=== PATIENT | female | born 1935 | race Two or more races ===

== ENCOUNTER 2018-03-27 13:25 | Inpatient (IN) | payer MEDICARE, MEDICAID ==
[~2018-03-27] VITALS: Ht 157.5 cm; Wt 56.4 kg
[~2018-03-27 13:25] MED LIST: CARB25TA3 PO; LEVO25TA6 PO
[2018-03-27] MEDS ORDERED: MULT1TAB95 PO (14:54)
[2018-03-27] MEDS ORDERED: ASCO500T11 PO (14:54)
[2018-03-27] MEDS ORDERED: LACT10SO3 PO (14:54)
[2018-03-27] MEDS ORDERED: HYDR-4683 PO (14:54)
[2018-03-27] MEDS ORDERED: SENN1TAB14 PO (14:54)
[2018-03-27] MEDS ORDERED: SULF400T11 PO (14:54)
[2018-03-27] MEDS ORDERED: ASPI81TA27 PO (14:54)
[2018-03-27] MEDS ORDERED: BIS10RS PR (14:54)
[2018-03-27] MEDS ORDERED: ERTAPENEM SOD INJ 1 GM in SODIUM CHL 0.9% 50 ML IV ONE (15:00)
[2018-03-27] MEDS: SODIUM CHLORIDE 0.9% 1,000 ML IV SCH (15:48)
[2018-03-27 15:50] LABS: Basophils # (auto) 0.1 uL; Basophils % (auto) 0.5 % (0.0-2.0); Eosinophils # (auto) 0 uL; Hemoglobin 15.1 g/dL (12.2-16.2); Lymphocytes # (auto) 2.5 uL; Lymphocytes % (auto) 22.7 % (10.0-50.0); Mean Corpuscular Hgb Conc. 34.3 g/dL (32.0-36.0); Mean Corpuscular Volume 84.5 fL (80.0-100.0); Monocytes # (auto) 0.9 uL; Monocytes % (auto) 8.4 % (0.0-12.0); Neutrophils # (auto) 7.5 uL; Neutrophils % (auto) 68.4 % (37.0-80.0); Nucleated Red Blood Cells % 0.1 %; Platelet Count (auto) 311 10^3/uL (140-450); Red Blood Cells 5.21 10^6/uL (4.0-5.20); Red Cell Distribution Width 14.1 % (11.8-14.3)
[2018-03-27] MEDS: ACETAMINOPHEN 500 MG TAB PO PRN ×2 (15:50→22:28)
[2018-03-27 16:00] LABS: Urine Bacteria NONE SEEN /hpf (None Seen); Urine Blood 2+ /uL (Negative); Urine Mucus FEW (None Seen); Urine Specific Gravity 1.032 (1.001-1.035); Urine WBC 10 /hpf (0 - 5)
[2018-03-27 16:12] LABS: Albumin 3.5 g/dL (3.4-5.0); BUN/Creatinine Ratio 32.9; Calcium 8.5 mg/dL (8.5-10.1)
[2018-03-27 16:39] LABS: Bilirubin, Total 0.9 mg/dL (0.2-1.0); Potassium 4.2 mmol/L (3.5-5.1); Total Protein 7.5 g/dL (6.4-8.2)
[2018-03-27 17:00] VITALS: BP 142/85
[2018-03-27 20:00] VITALS: BP 116/68
[2018-03-27 22:00] VITALS: BP 116/68
[2018-03-28] MEDS: SODIUM CHLORIDE 0.9% 1,000 ML IV SCH ×3 (03:41→13:46)
[2018-03-28 05:00] VITALS: BP 119/59
[2018-03-28 07:32] LABS: Basophils # (auto) 0.1 uL; Basophils % (auto) 0.7 % (0.0-2.0); Eosinophils # (auto) 0.1 uL; Eosinophils % (auto) 0.7 % (0.0-7.0); Hematocrit 39.2 % (36.0-46.0); Hemoglobin 13.4 g/dL (12.2-16.2); Lymphocytes # (auto) 2.3 uL; Lymphocytes % (auto) 24.7 % (10.0-50.0); Mean Corpuscular Hemoglobin 29.2 pg (28.0-32.0); Mean Corpuscular Hgb Conc. 34.3 g/dL (32.0-36.0); Monocytes # (auto) 0.7 uL; Monocytes % (auto) 7.7 % (0.0-12.0); Neutrophils # (auto) 6.2 uL; Neutrophils % (auto) 66.2 % (37.0-80.0); Nucleated Red Blood Cells % 0.1 %; Platelet Count (auto) 256 10^3/uL (140-450); Red Blood Cells 4.61 10^6/uL (4.0-5.20); Red Cell Distribution Width 14.2 % (11.8-14.3); White Blood Cell 9.4 10^3/uL (4.4-10.8)
[2018-03-28 07:40] LABS: BUN/Creatinine Ratio 35.7; Calcium 7.8 mg/dL (8.5-10.1)
[2018-03-28 09:00] VITALS: BP 161/76
[2018-03-28] MEDS: ERTAPENEM SOD INJ 1 GM in SODIUM CHL 0.9% 50 ML IV SCH (11:17)
[2018-03-28 13:00] VITALS: BP 132/63
[2018-03-28] MEDS ORDERED: LEVOTHYROXINE SODIUM 25 MCG TAB PO ONE (13:15)
[2018-03-28] MEDS: CARBIDOPA W LEVODOPA 25/100mg TABLET PO SCH ×2 (13:45→21:38)
[2018-03-28 17:01] VITALS: BP 156/76
[2018-03-28] MEDS: Ensure Enlive Strawberry 8oz Bottle PO SCH (18:29)
[2018-03-28 22:00] VITALS: BP 130/62
[2018-03-29] MEDS: SODIUM CHLORIDE 0.9% 1,000 ML IV SCH ×2 (01:00→13:13)
[2018-03-29 04:36] VITALS: BP 140/71
[2018-03-29] MEDS: CARBIDOPA W LEVODOPA 25/100mg TABLET PO SCH ×3 (05:39→21:34)
[2018-03-29] MEDS: LEVOTHYROXINE SODIUM 25 MCG TAB PO SCH (05:40)
[2018-03-29] MEDS: Ensure Enlive Strawberry 8oz Bottle PO SCH ×3 (08:35→18:15)
[2018-03-29 09:28] LABS: Basophils # (auto) 0 uL; Basophils % (auto) 0.5 % (0.0-2.0); Eosinophils # (auto) 0.1 uL; Eosinophils % (auto) 1.2 % (0.0-7.0); Hematocrit 41.9 % (36.0-46.0); Lymphocytes # (auto) 1.5 uL; Lymphocytes % (auto) 18.2 % (10.0-50.0); Mean Corpuscular Hemoglobin 28.7 pg (28.0-32.0); Mean Corpuscular Hgb Conc. 33.4 g/dL (32.0-36.0); Mean Corpuscular Volume 85.8 fL (80.0-100.0); Monocytes # (auto) 0.5 uL; Neutrophils % (auto) 74.1 % (37.0-80.0); Nucleated Red Blood Cells % 0.2 %; Platelet Count (auto) 264 10^3/uL (140-450); Red Blood Cells 4.88 10^6/uL (4.0-5.20); Red Cell Distribution Width 14.3 % (11.8-14.3); White Blood Cell 8.2 10^3/uL (4.4-10.8)
[2018-03-29 09:30] VITALS: BP 152/68
[2018-03-29] MEDS: ERTAPENEM SOD INJ 1 GM in SODIUM CHL 0.9% 50 ML IV SCH (10:15)
[2018-03-29 13:36] VITALS: BP 147/71
[2018-03-29 17:29] VITALS: BP 130/62
[2018-03-29 22:00] VITALS: BP 153/78
[2018-03-30] MEDS: SODIUM CHLORIDE 0.9% 1,000 ML IV SCH ×2 (04:58→21:10)
[2018-03-30 05:00] VITALS: BP 161/77
[2018-03-30] MEDS: CARBIDOPA W LEVODOPA 25/100mg TABLET PO SCH ×3 (05:18→21:43)
[2018-03-30] MEDS: LEVOTHYROXINE SODIUM 25 MCG TAB PO SCH (05:18)
[2018-03-30 08:00] VITALS: BP 135/68
[2018-03-30] MEDS: Ensure Enlive Strawberry 8oz Bottle PO SCH ×3 (08:00→18:00)
[2018-03-30] MEDS ORDERED: cefTRIAXone 1GM/10ml IVPUSH 10 ML IV SCH (09:00)
[2018-03-30 12:00] VITALS: BP 162/76
[2018-03-30 17:00] VITALS: BP 161/70
[2018-03-30 22:00] VITALS: BP 138/74
== END 2018-03-30 22:56 | disposition home or self-care (01) | DRG 871 ==
LOC: WEST WING 14:06
PROVIDERS: ADMIT Internal Medicine; ATTEND Internal Medicine
DX: A41.9 Sepsis, unspecified organism (principal); G93.41 Metabolic encephalopathy; N39.0 Urinary tract infection, site not specified; E86.0 Dehydration; E03.9 Hypothyroidism, unspecified; G20 Parkinson's disease; F02.80 Dementia in other diseases classified elsewhere, unspecified severity, without behavioral disturbance, psychotic disturbance, mood disturbance, and anxiety; Z79.899 Other long term (current) drug therapy; Z88.8 Allergy status to other drugs, medicaments and biological substances
CPT/HCPCS: 36415; 71045; 80048; 80053; 81001; 84443; 85025; 87040; 87081; 87086; 97110; 97163; 97530; J0696; J1335